=== PATIENT | female | born 1950 | race Two or more races ===

== ENCOUNTER → 2024-03-01 | Outpatient (CLI) | payer MEDICARE | END | disposition home or self-care (01) | LOC: LABPAT 11:12 | PROVIDERS: ATTEND Orthopaedic Surgery | DX: Z01.812 Encounter for preprocedural laboratory examination (principal); Z22.322 Carrier or suspected carrier of Methicillin resistant Staphylococcus aureus; M17.11 Unilateral primary osteoarthritis, right knee | CPT/HCPCS: 87070 ==

== ENCOUNTER 2024-04-03 08:40 | Observation (INO) | payer MEDICARE ==
--- NOTE | 2024-04-02 18:16 | HP ---
HISTORY AND PHYSICAL DATE OF SCHEDULED SURGERY: 04/03/2024. HISTORY OF PRESENT ILLNESS: Emilie Amaya is a 74-year-old patient seen with symptomatic right knee osteoarthritis. She elected to proceed with right total knee arthroplasty. Consent was obtained. Medical clearance was provided by . PAST MEDICAL HISTORY: Hypertension, hyperlipidemia. PAST SURGICAL HISTORY: Noncontributory. DAILY MEDICATIONS: 1. Lisinopril. 2. Simvastatin. 3. Zyrtec. 4. Tylenol. ALLERGIES: Aspirin, codeine, Keflex, morphine, Motrin, sulfa, Toradol, Tylenol 3, Vicodin. SOCIAL HISTORY: She denies tobacco use. PHYSICAL EVALUATION OF THE RIGHT KNEE: Her range of motion is 0 to 120 degrees. Mild effusion. Tenderness to medial joint line. Positive medial Caterina's. Crepitus, medial patellofemoral compartments with range of motion. Pain with patellofemoral compression. Ligaments stable. Hip rotation without pain. Distal neurovascular exam is intact. RADIOGRAPHS: Right knee radiographs revealed severe osteoarthritic changes. IMPRESSION: 1. Right knee osteoarthritis. 2. Hypertension. 3. Hyperlipidemia. PLAN: Right total knee arthroplasty. MMODL / IJN: [id number] /
[~2024-04-03 08:40] MED LIST: LIDOCAINE 1% (10MG/ML) FOR IV START INTRADERMA PRN; MELOXICAM 7.5 MG TAB PO PRN; TRANEXAMIC 1,000 MG/100ML-NACL 1,000 MG in SALINE 1 100ML.BAG IVPB PRN; fentaNYL (PF) 50 MCG/ML 2 ML AMP IV PRN
[2024-04-03] MEDS: ACETAMINOPHEN TAB 500 MG TAB PO PRN (09:27)
[2024-04-03] MEDS: ONDANSETRON 4 MG/2 ML VIAL IVP ONE (09:53)
[2024-04-03] MEDS: LACTATED RINGERS 1,000 ML IV SCH ×2 (09:53→15:01)
[2024-04-03] MEDS: DEXAMETHASONE SOD PHOSPHATE 4 MG/ML 1 ML VIAL IV ONE (09:53)
[2024-04-03] MEDS: IV FLUID CONTINUATION 1,000 ML IV ONE (09:56)
[2024-04-03] MEDS: MIDAZOLAM 2 MG/2 ML VIAL IV ONE (10:01)
--- NOTE | 2024-04-03 10:40 | P.ANPRN ---
Procedure Note - Anesthesia - Nerve Block Performed Right Richardck Single Time Out Performed: Yes Date of Procedure: 04/03/24 Procedure Start Time: 10:00 Procedure Stop Time: 10:05 Location of Patient: PreOp Indication: Acute Post-Operative Pain, Analgesia, Requested by Surgeon Sedation Type: Sedate with meaningful contact maintained Preparation: Sterile Prep Position: Left Lateral Catheter: None Needle Types: Pajunk Needle Gauge: 21 Ultrasound used to visualize needle placement: Yes Ultrasound used to observe medication spread: Yes Injectate: 0.5% Ropivacaine (see comment for volume) (Ropiv 20ml+decadron 4mg) Blood Aspirated: No Pain Paresthesia on Injection Noted: No Resistance on Injection: Normal Image Stored and Saved: Yes Events: Uneventful and Well Tolerated
--- NOTE | 2024-04-03 10:41 | P.ANPRN ---
Procedure Note - Anesthesia - Nerve Block Performed Right Adductor Canal Infusion Time Out Performed: Yes Date of Procedure: 04/03/24 Procedure Start Time: 10:05 Procedure Stop Time: 10:10 Location of Patient: PreOp Indication: Acute Post-Operative Pain, Analgesia, Requested by Surgeon Sedation Type: Sedate with meaningful contact maintained Preparation: Sterile Prep Position: Supine Catheter: Indwelling Needle Gauge: 21 Ultrasound used to visualize needle placement: Yes Ultrasound used to observe medication spread: Yes Injectate: 0.5% Ropivacaine (see comment for volume) (Ropiv 20ml+decadron 4mg) Blood Aspirated: No Pain Paresthesia on Injection Noted: No Resistance on Injection: Normal Image Stored and Saved: Yes Events: Uneventful and Well Tolerated
[2024-04-03] MEDS ORDERED: DEXAMETHASONE SOD PHOSPHATE 4 MG/ML 1 ML VIAL ONE (11:35)
[2024-04-03] MEDS ORDERED: PHENYLEPHRINE 10 MG/ML VIAL ONE (11:35)
[2024-04-03] MEDS ORDERED: fentaNYL (PF) 50 MCG/ML 2 ML AMP ONE (11:35)
[2024-04-03] MEDS ORDERED: ROPIVACAINE 5 MG/ML 30 ML VIAL ONE (11:35)
[2024-04-03] MEDS ORDERED: MIDAZOLAM 2 MG/2 ML VIAL ONE (11:35)
[2024-04-03] MEDS ORDERED: TRANEXAMIC 1,000 MG/100ML-NACL PREMIX BAG ONE (11:35)
[2024-04-03] MEDS ORDERED: KETAMINE HCL IN 0.9 % NACL 50 MG/5 ML SYRINGE ONE (11:35)
[2024-04-03] MEDS ORDERED: PROPOFOL 10 MG/ML 20 ML VIAL IV ONE (11:35)
[2024-04-03] MEDS ORDERED: GLYCOPYRROLATE 0.2 MG/ML 2 ML VIAL ONE (11:35)
[2024-04-03] MEDS ORDERED: HYDROcodone/APAP 5-325MG 1 EACH TAB PO PRN (12:54)
[2024-04-03] MEDS ORDERED: HYDROmorphone 0.5 MG/0.5 ML SYRINGE IVP PRN ×2 (12:54)
[2024-04-03] MEDS ORDERED: HYDROcodone/APAP 7.5-325MG 1 EACH TAB PO PRN (12:54)
[2024-04-03] MEDS ORDERED: NALOXONE 0.4 MG/ML 1 ML VIAL IV PRN (12:54)
--- NOTE | 2024-04-03 12:54 | P.OP ---
Date of Procedure: 04/03/24 Preoperative Diagnosis: Right knee osteoarthritis Postoperative Diagnosis: Right knee osteoarthritis Procedure(s) Performed: Right total knee arthroplasty Implants: 1. DePuy attune size 4 right cruciate retaining cemented femur 2. DePuy attune size 4 fixed-bearing cemented tibial baseplate 3. DePuy attune size 4 cruciate retaining fixed-bearing 8 mm polyethylene tibial insert 4. DePuy attune 35 mm all polyethylene cemented patella Anesthesia: regional (Adductor canal catheter, iPAQ block), spinal Surgeon: Mainor Pollard Director Of Primary #1: Brody Marquez Estimated Blood Loss (ml): 35 Pathology: none sent Condition: stable Disposition: PACU Indications for Procedure: 74-year-old patient seen with symptomatic right knee osteoarthritis. After having treatment options discussed, she elected to proceed with total knee arthroplasty. Operative Findings: See description of procedure Description of Procedure: Patient was taken to the operative suite after having an adductor canal catheter placed by the department of anesthesia. Patient underwent a spinal anesthetic by the department of anesthesia. Patient was given preoperative IV intake antibiotics and TXA. A well-padded tourniquet was placed about the right lower extremity. The lower extremity was then prepped and draped in the normal sterile orthopedic fashion. The extremity was elevated, a tourniquet was insufflated to 300. A standard anterior incision was made sharply through skin. Dissection was taken down through the subcutaneous soft tissues down to the extensor mechanism. A medial arthrotomy was performed, patella was everted and knee was flexed. There was advanced osteoarthritis noted. I introduced my distal intramedullary femoral drill. I then introduced the distal femoral cutting jig. Leland RAMIREZ secured the cutting jig with 2 pins. I held retractors in position while Leland RAMIREZ performed the distal femoral resection through the guide area we now removed her distal femoral cutting guide. We now placed our 4-in-1 femoral cutting block and positioned and it was secured with 2 pins by Leland RAMIREZ while I held the block in position. The distal femoral finishing was now completed. A proximal tibial cutting guide was positioned. I held the guide in the appropriate position with both hands well Leland RAMIREZ inserted stabilizing pins into the guide. Proximal tibial cut was made. We now placed a trial femoral component into position, along with an appropriate size tibial tray and insert. We now took the knee through range of motion and had full extension good flexion and good overall soft tissue balance noted. The patella was everted and stabilized with 2 towel clips held by Leland RAMIREZ while I performed a flush with patellar quad tendon utilizing a fresh sawblade. We templated the patella, appropriate drill holes were made. An appropriate trial patella was positioned, knee was taken through full range of motion with the patella tracking very nicely. The trial patella was removed. Drill holes were made through the femoral component. All trial components were removed after marking off the appropriate rotation of the tibia. Retractors were now positioned along the proximal tibia. An appropriate keel punch was made with the appropriate size tibial guide by myself on Leland RAMIREZ assisted by holding retractors. At this point appropriate size implants were chosen and opened. The joint was irrigated copiously with pulse lavage mechanical irrigation. The wound was irrigated with pulse lavage mechanical irrigation. We mixed antibiotic methylmethacrylate. We placed the knee into flexion. We placed multiple retractors assisted by Leland RAMIREZ to expose the proximal tibia. Once the methyl methacrylate was ready, the tibial component was cemented into place removing any excess methylmethacrylate form by both myself and Leland RAMIREZ. The femoral component was cemented into place removing the removing any excess methylmethacrylate performed by both myself and Leland RAMIREZ. We then inserted the appropriate size polyethylene tibial insert. We made sure that it was locked into position. We took the knee into full extension, and then back in a flexion making sure we had removed any excess methylmethacrylate. The patellar component was then cemented down and secured with clamp. Excess methylmethacrylate removed. We kept the knee in full extension, patellar clamp in position until methylmethacrylate had hardened. Once it had hardened the patellar clamp was removed. The knee was taken through full range of motion. The patella tracked nicely. There was good soft tissue balancing. The tourniquet was now released. Additional hemostasis was achieved via electrocautery. A second gram of TXA was given. The wound again was irrigated with pulse lavage mechanical irrigation. The extensor mechanism was repaired with Ethibond suture. We checked the repair with range of motion and it was stable. The subcutaneous soft tissues were repaired with Vicryl in layers. The skin was approximated with pernio/Dermabond. Sterile dressings were applied followed by loose web roll and Glenroy bandage. The patient was transferred to a bed, and taken to recovery in stable and satisfactory condition. Leland RAMIREZ assisted with this complex procedure.
[2024-04-03] MEDS: LACTATED RINGERS 1,000 ML IV ONE (13:02)
[2024-04-03] MEDS: ROPIVACAINE 1,100 MG, SODIUM CHLORIDE 0.9% 500 ML 330 ML, EMPTY PAIN BALL 1 EACH MISCELLANE PRN (13:33)
--- NOTE | 2024-04-03 14:25 | XR ---
EXAMINATION TYPE: XR knee limited RT DATE OF EXAM: 04/03/2024 2:00 PM CLINICAL INDICATION: Female, 74 years old with history of Evaluation for Postop abnormality and align ment; [facility] COMPARISON: None. TECHNIQUE: XR knee limited RT; examined in Frontal, lateral and oblique projections. FINDINGS: Status post total knee arthroplasty changes with hardware in appropriate alignment and in tact. No evidence of fracture. Subcutaneous lucencies and lucencies within the joint consistent with surgical changes. IMPRESSION: Status post total knee arthroplasty changes with hardware intact and appropriate alignment. No fractu res identified.
[2024-04-03] MEDS: droPERidol 5 MG/2 ML VIAL IVP ONE (14:55)
[2024-04-03] MEDS: traMADol 50 MG TAB PO SCH (14:58)
[2024-04-03] MEDS: HYDROmorphone 0.5 MG/0.5 ML SYRINGE IVP PRN (17:03)
--- NOTE | 2024-04-03 18:09 | P.CONS ---
History of Present Illness - Reason for Consult Consult date: 04/03/24 Medical management Requesting physician: Mainor Pollard - Chief Complaint Right knee surgery - History of Present Illness This is a pleasant 74-year-old patient who follows with Dr. Marga Flores. Chronic stable medical conditions include hypertension, hyperlipidemia, arthritis in the hands specially affecting the thumbs, urinary incontinence, mitral valve prolapse. Patient has undergone right total knee arthroplasty. Short time ago pain was 10 out of 10. Received IV Dilaudid. No nausea vomiting. Denies any cardiac symptoms. Laying in bed. Review of systems: GEN.: None EYES: None HEENT: None NECK: None RESPIRATORY: None CARDIOVASCULAR: None GASTROINTESTINAL: GERD GENITOURINARY: Urine stress incontinence MUSCULOSKELETAL: Joint pains] LYMPHATICS: None HEMATOLOGICAL: None PSYCHIATRY: None NEUROLOGICAL: None Social history: Lives alone. No smoking alcohol. Physical examination: VITAL SIGNS: Afebrile, 59, 16, 140/93, 97% room air GENERAL: BMI 25.3, reclining bed awake not in distress. EYES: Pupils equal. Conjunctiva unique l. HEENT: External appearance of nose and ears normal, oral cavity grossly normal. NECK: JVD not raised; masses not palpable. HEART: First and second heart sounds are normal; no edema. LUNGS: Respiratory rate normal; clear to auscultation. ABDOMEN: Soft, nontender, liver spleen not palpable, no masses palpable. PSYCH: Alert and oriented x3; mood and affect unique l. MUSCULOSKELETAL:No Clubbing/cyanosis;muscles-grossly intact. OA especially in the hands. Dressing with Glenroy wrap on the right knee. NEUROLOGICAL: Cranial nerves grossly intact; no facial asymmetry, power and sensation grossly intact. LYMPHATICS: No lymph nodes palpable in the axilla and neck Assessment plan: -Right total knee arthroplasty Aspirin for DVT prophylaxis. Cefazolin for infection prophylaxis. Pain management -Essential hypertension Zestril 20 mg a day -Hyperlipidemia Zocor 40 mg nightly -Primary osteoarthritis multiple joints specially hands Pain medication as needed -Mitral valve prolapse, asymptomatic -Chronic urinary stress incontinence -Full code Care was discussed with the patient. Questions answered. Thank you Dr. Manjarrez Past Medical History Past Medical History: Hyperlipidemia, Hypertension History of Any Multi-Drug Resistant Organisms: None Reported Past Surgical History: Cholecystectomy, Orthopedic Surgery Additional Past Surgical History / Comment(s): R knee, bilateral great toe joints replaced Past Anesthesia/Blood Transfusion Reactions: No Reported Reaction Past Psychological History: No Psychological Hx Reported Smoking Status: Never smoker Past Drug Use History: None Reported Medications and Allergies Home Medications Medication Instructions Recorded Confirmed Type Acetaminophen [Tylenol Extra 2 tab PO Q8H PRN 04/02/24 04/03/24 History Strength] Simvastatin [Zocor] 40 mg PO HS 04/02/24 04/03/24 History lisinopriL [Prinivil] 20 mg PO DAILY 04/02/24 04/03/24 History Allergies Allergy/AdvReac Type Severity Reaction Status Date / Time acetaminophen [From Vicodin] Allergy Rash/Hives Verified 04/03/24 09:17 aspirin Allergy Rash/Hives Verified 04/03/24 09:17 cephalexin [From Keflex] Allergy Rash/Hives Verified 04/03/24 09:17 codeine Allergy Dyspnea Verified 04/03/24 09:17 hydrocodone [From Vicodin] Allergy Rash/Hives Verified 04/03/24 09:17 ketorolac [From Toradol] Allergy Rash/Hives Verified 04/03/24 09:17 Sulfa (Sulfonamide Allergy Rash/Hives Verified 04/03/24 09:17 Antibiotics) NSAIDS (Non-Steroidal AdvReac Rash/Hives Verified 04/03/24 09:17 Anti-Inflamma Physical Exam Vitals: Vital Signs Temp Pulse Resp BP Pulse Ox 04/03/24 16:59 59 L 140/93 97 04/03/24 16:41 84 181/85 94 L 04/03/24 16:27 84 163/107 99 04/03/24 16:11 66 162/95 94 L 04/03/24 15:56 59 L 158/89 95 04/03/24 15:41 64 150/84 04/03/24 15:26 65 156/84 98 04/03/24 15:11 63 156/89 96 04/03/24 14:56 62 158/91 93 L 04/03/24 14:41 68 133/83 96 04/03/24 14:20 59 L 125/77 97 04/03/24 14:05 61 125/77 96 04/03/24 13:50 65 16 113/72 96 04/03/24 13:35 65 110/70 97 04/03/24 13:22 97.6 F 70 16 108/64 95 04/03/24 10:16 66 16 125/72 100 04/03/24 09:32 97.0 F L 73 18 177/93 97 Intake and Output 04/03/24 04/03/24 04/03/24 06:59 14:59 22:59 Intake Total 1150 Output Total 35 Balance 1115 Intake: IV 1150 Output: Estimated Blood Loss 35 Other: Weight 64.9 kg
[2024-04-03] MEDS: ATORVASTATIN 20 MG TAB PO SCH (20:59)
[2024-04-03] MEDS: SENNOSIDES-DOCUSATE SODIUM 1 EACH TAB PO SCH (21:00)
[2024-04-03] MEDS: ASPIRIN 325 MG TAB PO SCH (21:00)
[2024-04-04] MEDS: MULTIVITAMINS, THERA 1 EACH TAB PO SCH (08:45)
[2024-04-04] MEDS: lisinopriL 20 MG TAB PO SCH (08:45)
[2024-04-04] MEDS: ONDANSETRON 4 MG/2 ML VIAL IVP PRN (09:18)
--- NOTE | 2024-04-04 09:48 | P.PN ---
Progress Note - Text Progress Note Date: 04/04/24 Anesthesiology Postop day 1 status post total knee arthroplasty with adductor canal catheter. Patient doing well. VAS 4 out of 10. Gross strength intact in lower extremity. Afebrile. Denies alterations in sensorium. Catheter site intact. Heart regular rate Lungs nonlabored Abdomen nondistended Assessment: Postop day 1 status post total knee arthroplasty with adductor canal catheter Plan: 1.All questions answered. Maintain catheter 2 more days with patient removal at home. Instructions to be given at discharge. 2.This note was dictated using Cuturia software. Please be advised there is a potential for misspellings or errors in mineralogy teacher.
[2024-04-04] MEDS: ENOXAPARIN 30 MG/0.3 ML SYRINGE SQ SCH (10:20)
[2024-04-04 10:59] LABS: Basophils # (A) 0.02 X 10*3/uL (0.00-0.10); Basophils % (A) 0.1 %; Eosinophils # (A) 0 X 10*3/uL (0.04-0.35); Eosinophils % (A) 0 %; HCT 38.9 % (37.2-46.3); HGB 13.3 g/dL (12.0-15.0); Lymphocytes # (A) 1.09 X 10*3/uL (0.90-5.00); Lymphocytes % (A) 6.4 %; MCH 31.4 pg (27.0-32.0); MCHC 34.2 g/dL (32.0-37.0); MCV 91.7 FL (80.0-97.0); Mean Platelet Volume 9.6 FL (9.5-12.2); Monocytes # (A) 1.08 X 10*3/uL (0.20-1.00); Monocytes % (A) 6.4 %; NRBC Per 100 WBC 0 X 10*3/uL (0.00-0.01); Neutrophils # (A) 14.64 X 10*3/uL (1.80-7.70); Neutrophils % (A) 86.4 %; Platelet Count 313 X 10*3/uL (140-440); RBC 4.24 X 10*6/uL (4.10-5.20); RDW 12.4 % (11.5-14.5); WBC 16.95 X 10*3/uL (4.50-10.00)
--- NOTE | 2024-04-04 12:02 | P.PN ---
Subjective Progress Note Date: 04/04/24 Principal diagnosis: Status post right total knee arthroplasty Patient evaluated today at bedside, she is resting comfortably in her hospital bed. Patient has been dealing with a lot of nausea this morning, she did receive Zofran which did help. She was unable to do the stairs of physical therapy due to the nausea. She denies any headaches, lightheadedness or chest pain at this time. Objective - Vital Signs Vital signs: Vital Signs Temp 97.7 F 04/04/24 08:00 Pulse 62 04/04/24 08:00 Resp 18 04/04/24 11:13 BP 126/72 04/04/24 08:00 Pulse Ox 93 L 04/04/24 08:00 FiO2 Intake & Output 04/03/24 04/04/24 04/04/24 18:59 06:59 18:59 Intake Total 1150 Output Total 35 Balance 1115 Weight 64.9 kg Intake: IV 1150 Output: Estimated Blood Loss 35 Other: # Voids 1 - Exam Right lower extremity: Incision is clean, dry, and intact. The foam dressing is in good condition. There is minimal soft tissue swelling and ecchymosis surrounding the medial and lateral aspects of the incision. Calf is soft, no tenderness with palpation. Plantar flexion, dorsiflexion, EHL, FHL are intact. Sensory exam to light touch throughout the extremity is intact, dorsal pedis pulses 2+. - Labs CBC & Chem 7: 04/04/24 07:19 Labs: Abnormal Lab Results - Last 24 Hours (Table) 04/04/24 Range/Units 07:19 WBC 16.95 H (4.50-10.00) X 10*3/uL Immature Gran # 0.12 H (0.00-0.04) X 10*3/uL Neutrophils # 14.64 H (1.80-7.70) X 10*3/uL Monocytes # 1.08 H (0.20-1.00) X 10*3/uL Eosinophils # 0 L (0.04-0.35) X 10*3/uL Assessment and Plan Assessment: Postoperative day #1 status post right total knee arthroplasty Nausea Other medical comorbidities Plan: Pain control, continue with tramadol and Tylenol as needed DVT prophylaxis, continue Lovenox, will likely use Lovenox at discharge Encourage incentive spirometer Wound care instructions were discussed, this to include showering along with icing and elevating Medical recommendations appreciated Discharge planning: Would like to keep patient in hospital for additional night to work on nausea and have her work with therapy, plan for discharge home with home health care on 04/05/2024 Time with Patient: Less than 30
--- NOTE | 2024-04-04 16:26 | P.PN ---
Progress Note - Text Progress Note Date: 04/04/24 - Chief Complaint Right knee surgery - History of Present Illness This is a pleasant 74-year-old patient who follows with Dr. Marga Flores. Chronic stable medical conditions include hypertension, hyperlipidemia, arthritis in the hands specially affecting the thumbs, urinary incontinence, mitral valve prolapse. Patient has undergone right total knee arthroplasty. Short time ago pain was 10 out of 10. Received IV Dilaudid. No nausea vomiting. Denies any cardiac symptoms. Laying in bed. April 04: Patient had nausea overnight. Vomited all of breakfast this morning. No abdominal pain. Tired in bed. Active Medications Acetaminophen (Acetaminophen Tab 500 Mg Tab) 1,000 mg PO Q6HR PRN PRN Reason: Fever and/ or Pain Stop: 05/03/24 13:23 Aspirin (Aspirin 325 Mg Tab) 325 mg PO BID [facility] Stop: 05/03/24 20:59 Last Admin: 04/04/24 10:19 Dose: Not Given Atorvastatin Calcium (Atorvastatin 20 Mg Tab) 20 mg PO HS [facility] Last Admin: 04/03/24 20:59 Dose: 20 mg Ropivacaine 1,100 mg/ Sodium Chloride 330 ml/ Bandage/Support Products 1 each 0 mg MISCELLANE Q2H PRN PRN Reason: Breakthrough Pain Stop: 05/03/24 10:41 Last Admin: 04/03/24 13:33 Dose: 8 ml Enoxaparin Sodium (Enoxaparin 30 Mg/0.3 Ml Syringe) 30 mg SQ DAILY [facility] Last Admin: 04/04/24 10:20 Dose: 30 mg Hydromorphone HCl (Hydromorphone 0.5 Mg/0.5 Ml Syringe) 0.25 mg IVP Q3HR PRN PRN Reason: Pain Scale 4 to 6 Stop: 05/03/24 12:53 Hydromorphone HCl (Hydromorphone 0.5 Mg/0.5 Ml Syringe) 0.5 mg IVP Q3HR PRN PRN Reason: Pain Scale 7 to 10 Stop: 05/03/24 12:53 Last Admin: 04/03/24 17:03 Dose: 0.5 mg Hydromorphone HCl (Hydromorphone 0.5 Mg/0.5 Ml Syringe) 0.125 mg IVP Q3HR PRN PRN Reason: Pain Scale 1 to 3 Stop: 05/03/24 12:53 Lactated Ringer's (Lactated Ringers) 1,000 mls @ 20 mls/hr IV .Q24H [facility] Stop: 05/03/24 05:30 Last Admin: 04/04/24 05:49 Dose: Not Given Lactated Ringer's (Lactated Ringers) 1,000 mls @ 80 mls/hr IV .[id number] [facility] Stop: 05/03/24 12:59 Last Admin: 04/04/24 12:36 Dose: Not Given Lidocaine HCl (Lidocaine 1% (10mg/Ml) For Iv Start) 0.1 ml INTRADERMA PER PROTOCOL PRN PRN Reason: IV Start Stop: 05/03/24 05:30 Lisinopril (Lisinopril 20 Mg Tab) 20 mg PO DAILY [facility] Last Admin: 04/04/24 08:45 Dose: 20 mg Multivitamins (Multivitamins, Thera 1 Each Tab) 1 each PO DAILY@1200 [facility] Stop: 05/04/24 11:59 Last Admin: 04/04/24 08:45 Dose: 1 each Naloxone HCl (Naloxone 0.4 Mg/Ml 1 Ml Vial) 0.2 mg IV Q2M PRN PRN Reason: Opioid Reversal Stop: 05/03/24 12:53 Ondansetron HCl (Ondansetron 4 Mg/2 Ml Vial) 4 mg IVP Q8HR PRN PRN Reason: Nausea And Vomiting Stop: 05/03/24 12:53 Last Admin: 04/04/24 09:18 Dose: 4 mg Senna/Docusate Sodium (Sennosides-Docusate Sodium 1 Each Tab) 2 each PO HS [facility] Stop: 05/03/24 20:59 Last Admin: 04/03/24 21:00 Dose: 2 each Tramadol HCl (Tramadol 50 Mg Tab) 50 mg PO QID [facility] Stop: 05/03/24 17:59 Last Admin: 04/04/24 12:39 Dose: 50 mg Social history: Lives alone. No smoking alcohol. Physical examination: VITAL SIGNS: 97.8, 69, 18, 119/68, 91% room air GENERAL: In bed, not in distress. EYES: Pupils equal. Conjunctiva unique l. HEENT: External appearance of nose and ears normal, oral cavity grossly normal. NECK: JVD not raised; masses not palpable. HEART: First and second heart sounds are normal; no edema. LUNGS: Respiratory rate normal; clear to auscultation. ABDOMEN: Soft, nontender, liver spleen not palpable, no masses palpable. PSYCH: Alert and oriented x3; mood and affect unique l. MUSCULOSKELETAL:No Clubbing/cyanosis;muscles-grossly intact. OA especially in the hands. Dressing with Glenroy wrap on the right knee. Assessment plan: -Right total knee arthroplasty Aspirin for DVT prophylaxis. Cefazolin for infection prophylaxis. Pain management -Nausea vomiting could be from aspirin. Add Pepcid -Essential hypertension Zestril 20 mg a day -Hyperlipidemia Zocor 40 mg nightly -Primary osteoarthritis multiple joints specially hands Pain medication as needed -Mitral valve prolapse, asymptomatic -Chronic urinary stress incontinence -Full code Discussed with patient Thank you Dr. Manjarrez Past Medical History Past Medical History: Hyperlipidemia, Hypertension History of Any Multi-Drug Resistant Organisms: None Reported Past Surgical History: Cholecystectomy, Orthopedic Surgery Additional Past Surgical History / Comment(s): R knee, bilateral great toe joints replaced Past Anesthesia/Blood Transfusion Reactions: No Reported Reaction Past Psychological History: No Psychological Hx Reported Smoking Status: Never smoker Past Drug Use History: None Reported
[2024-04-04] MEDS: FAMOTIDINE 20 MG TAB PO SCH (17:41)
[2024-04-05 05:16] LABS: African American GFR (CKD) 90 (>60 ml/min/1.73 sqM); Anion Gap 2 mmol/L; Blood Urea Nitrogen 20 mg/dL (7-17); Calcium 8.5 mg/dL (8.4-10.2); Carbon Dioxide 27 mmol/L (22-30); Chloride 103 mmol/L (98-107); Glucose 135 mg/dL (74-99); Non-African American GFR(CKD) 78 (>60 ml/min/1.73 sqM); Sodium 132 mmol/L (137-145)
[2024-04-05 07:25] VITALS: BP 166/93; PULSE 69; RESP 18; TEMP 97.7
--- NOTE | 2024-04-05 08:19 | P.PN ---
Subjective Progress Note Date: 04/05/24 Principal diagnosis: Status post right total knee arthroplasty Patient evaluated today at bedside, she is resting comfortably in her hospital bed. Patient states that the nausea is much improved. She does note some discomfort in the knee. She has been utilizing the Tylenol and tramadol alternating. She denies any headaches, lightheadedness or chest pain at this time. Objective - Vital Signs Vital signs: Vital Signs Temp 97.7 F 04/05/24 07:24 Pulse 69 04/05/24 07:24 Resp 18 04/05/24 07:24 BP 166/93 04/05/24 07:24 Pulse Ox 93 L 04/05/24 07:24 FiO2 Intake & Output 04/04/24 04/05/24 04/05/24 18:59 06:59 18:59 Intake Total 500 Balance 500 Intake: Oral 500 Other: Voiding Method Toilet # Voids 3 - Exam Right lower extremity: Incision is clean, dry, and intact. The foam dressing is in good condition. There is minimal soft tissue swelling and ecchymosis surrounding the medial and lateral aspects of the incision. Calf is soft, no tenderness with palpation. Plantar flexion, dorsiflexion, EHL, FHL are intact. Sensory exam to light touch throughout the extremity is intact, dorsal pedis pulses 2+. - Labs CBC & Chem 7: 04/04/24 07:19 04/05/24 04:41 Labs: Abnormal Lab Results - Last 24 Hours (Table) 04/04/24 04/05/24 Range/Units 07:19 04:41 WBC 16.95 H (4.50-10.00) X 10*3/uL Immature Gran # 0.12 H (0.00-0.04) X 10*3/uL Neutrophils # 14.64 H (1.80-7.70) X 10*3/uL Monocytes # 1.08 H (0.20-1.00) X 10*3/uL Eosinophils # 0 L (0.04-0.35) X 10*3/uL Sodium 132 L (137-145) mmol/L BUN 20 H (7-17) mg/dL Glucose 135 H (74-99) mg/dL Assessment and Plan Assessment: Postoperative day #2 status post right total knee arthroplasty Nausea, improved Other medical comorbidities Plan: Pain control, will utilize tramadol and Tylenol at discharge DVT prophylaxis, Lovenox for 12 days Encourage incentive spirometer Home PT/OT Wound care instructions were discussed, this to include showering along with icing and elevating Medical recommendations appreciated Discharge planning: Stable for discharge home today Time with Patient: Less than 30
--- NOTE | 2024-04-05 08:23 | P.DS ---
Providers Date of admission: 04/03/2024 Expected date of discharge: 04/05/24 Attending physician: Mainor Pollard Consults: 04/03/24 12:54 Consult Physician Routine Consulting Provider: Mohit Aranda Consult Reason/Comments: Medical management Do you want consulting provider notified?: Yes Primary care physician: Marga Flores MD Hospital Course: Date of admission: 04/03/2024 Date of discharge: 04/05/2024 Admission diagnosis: Status post left total knee arthroplasty Discharge diagnosis: Same Attending physician: Dr. Pollard Surgical procedures: Left total knee arthroplasty Brief history: Patient is a 74-year-old female with a history of progressive primary left knee osteoarthritis. At this point patient has failed conservative treatment measures and has opted to proceed with a elective left total knee arthroplasty. Hospital course: Details of patient's surgery can be found in operative report. Patient tolerated the procedure well and was subsequently transported to orthopedic floor. Patient's orthopeidc and medical care was provided daily. Patient had daily laboratory tests performed for evaluation of overall blood counts. Patient had daily physical therapy to include strengthening range of motion as well as education with walker ambulation. Patient was treated with Lovenox for their postoperative DVT prophylaxis during their inpatient stay. Patient was noted to have a relatively uneventful postoperative course. Patient reported satisfactory pain control with oral pain medications by postoperative day 1. Patient showed satisfactory progress with physical therapy. Patient moved steadily through the program and had no difficulty meeting the goals by postoperative day 2. Given patient's otherwise satisfactory course and having m et physical therapy goals, plan is to discharge patient home on postoperative day 2. Discharge condition/disposition: Patient will be discharged home in stable condition. Discharge medications: Instructions are given on resumption of patient's normal daily medications per primary care recommendation, in addition patient will be prescribed Tylenol 650 mg, tramadol 50 mg, Lovenox 30 mg, senna S. Discharge instructions: 1. Wound care and infection precautions, keep incision dry and covered while showering, no lotions, creams, moisturizers. No soaking, tubs, pools, hottubs. Do not scrub over the incision. 2. Weight-bear as tolerated with walker / cane until follow-up. 3. Ice and elevate when necessary. Do not exceed 20 minutes per hour with ice pack. 4. Utilize compression sleeve until seen at first follow up appointment. 5. Visiting nursing care. 6. Home physical therapy including home CPM. 7. Pain meds and anticoagulants per prescription. 8. Pain medication has potential to cause constipation. Increase oral fluid and fiber intake. Contact primary care provider if you have not had a bowel movement within 48 hours after discharge 9. No anti-inflammatory medication until discussed at first post operative visit, this including Motrin, Aleve, Mobic, Diclofenac. 10. Follow up in office at 2 weeks postop with Leland Marquez PA-C/Rao Chávez 11. Follow up with your primary care doctor 7-10 days after discharge. 12. Contact [facility] with any questions, . Procedures: Left total knee arthroplasty Patient Condition at Discharge: Good Plan - Discharge Summary Discharge Rx Participant: Yes New Discharge Prescriptions: New Enoxaparin [Lovenox] 30 mg SQ DAILY #12 each traMADol HCL 50 mg PO Q6H PRN 7 Days #28 tab PRN Reason: Pain Acetaminophen Tab [Tylenol] 650 mg PO Q6H PRN #40 tab PRN Reason: Pain Sennosides/Docusate Sodium [Senna-S 8.6-50 mg Tablet] 2 each PO DAILY PRN #30 tablet PRN Reason: Constipation No Action Simvastatin [Zocor] 40 mg PO HS Acetaminophen [Tylenol Extra Strength] 2 tab PO Q8H PRN PRN Reason: Pain lisinopriL [Prinivil] 20 mg PO DAILY Discharge Medication List Acetaminophen [Tylenol Extra Strength] 2 tab PO Q8H PRN 04/02/24 [History] Simvastatin [Zocor] 40 mg PO HS 04/02/24 [History] lisinopriL [Prinivil] 20 mg PO DAILY 04/02/24 [History] Acetaminophen Tab [Tylenol] 650 mg PO Q6H PRN #40 tab 04/05/24 [Rx] Enoxaparin [Lovenox] 30 mg SQ DAILY #12 each 04/05/24 [Rx] Sennosides/Docusate Sodium [Senna-S 8.6-50 mg Tablet] 2 each PO DAILY PRN #30 tablet 04/05/24 [Rx] traMADol HCL 50 mg PO Q6H PRN 7 Days #28 tab 04/05/24 [Rx] Follow up Appointment(s)/Referral(s): Brody Marquez, LIZANDRO [PHYSICIAN [employer]] - 2 Weeks [facility] Visiting Nurse, [NON-STAFF] - 1 Week Activity/Diet/Wound Care/Special Instructions: Orthopedic Discharge Instructions: 1. Wound care and infection precautions, keep incision dry and covered while showering, no lotions, creams, moisturizers. No soaking, pools, hot tubs. Do not scrub over incision. 2. Weight-bear as tolerated with walker / cane until follow-up. 3. Ice and elevate when necessary. Do not exceed 20 minutes per hour with ice pack. 4. Utilize compression sleeve until seen at first follow up appointment. 5. Pain meds and anticoagulants per prescription. 6. Pain medication has potential to cause constipation. Increase oral fluid and fiber intake. Contact primary care provider if you have not had a bowel movement within 48 hours after discharge. 7. No anti-inflammatory medication until discussed at first post operative visit, this including Motrin, Aleve, Mobic, Diclofenac. 8. Follow up in office at 2 weeks postop with Leland Marquez PA-C/Rao Holloway PA-C 9. Follow up with your primary care doctor 7-10 days after discharge. 10. Contact [facility] with any questions, . Wound care instructions: 1. Okay to remove surgical dressing as of 04/10/2024 2. Okay to shower directly over the incision after removal of dressing Discharge Disposition: HOME WITH HOME HEALTH SERVICES
[2024-04-05] MEDS: ACETAMINOPHEN TAB 500 MG TAB PO PRN (10:59)
--- NOTE | 2024-04-05 16:29 | P.PN ---
Progress Note - Text Progress Note Date: 04/05/24 - Chief Complaint Right knee surgery - History of Present Illness This is a pleasant 74-year-old patient who follows with Dr. Marga Flores. Chronic stable medical conditions include hypertension, hyperlipidemia, arthritis in the hands specially affecting the thumbs, urinary incontinence, mitral valve prolapse. Patient has undergone right total knee arthroplasty. Short time ago pain was 10 out of 10. Received IV Dilaudid. No nausea vomiting. Denies any cardiac symptoms. Laying in bed. April 04: Patient had nausea overnight. Vomited all of breakfast this morning. No abdominal pain. Tired in bed. April 05: Nausea better. Did tolerate some breakfast. Operative site pain present. Per Ortho aspirin changed over to subcu Lovenox. Discussed with patient. Questions answered. Social history: Lives alone. No smoking alcohol. Physical examination: VITAL SIGNS: 97.7, 69, 18, 166 x 93, 93% room air GENERAL: In bed, comfortable EYES: Pupils equal. Conjunctiva unique l. HEENT: External appearance of nose and ears normal, oral cavity grossly normal. NECK: JVD not raised; masses not palpable. HEART: First and second heart sounds are normal; no edema. LUNGS: Respiratory rate normal; clear to auscultation. ABDOMEN: Soft, nontender, liver spleen not palpable, no masses palpable. PSYCH: Alert and oriented x3; mood and affect unique l. MUSCULOSKELETAL:No Clubbing/cyanosis;muscles-grossly intact. OA especially in the hands. Dressing with [place] wrap on the right knee. Assessment plan: -Right total knee arthroplasty Subcu Lovenox for DVT prophylaxis. Cefazolin for infection prophylaxis. Pain management -Nausea vomiting could be from aspirin and pain medications. Add Pepcid -Essential hypertension Zestril 20 mg a day -Hyperlipidemia Zocor 40 mg nightly -Primary osteoarthritis multiple joints specially hands Pain medication as needed -Mitral valve prolapse, asymptomatic -Chronic urinary stress incontinence -Full code Discussed with patient. Follow-up with PCP Thank you Dr. Manjarrez Past Medical History Past Medical History: Hyperlipidemia, Hypertension History of Any Multi-Drug Resistant Organisms: None Reported Past Surgical History: Cholecystectomy, Orthopedic Surgery Additional Past Surgical History / Comment(s): R knee, bilateral great toe joints replaced Past Anesthesia/Blood Transfusion Reactions: No Reported Reaction Past Psychological History: No Psychological Hx Reported Smoking Status: Never smoker Past Drug Use History: None Reported
== END 2024-04-05 13:44 | disposition home health service (06) ==
LOC: OR 08:40 → 4SSUR 13:16 → OR 04-04 12:02
PROVIDERS: ADMIT Orthopaedic Surgery; ATTEND Orthopaedic Surgery
DX: M17.11 Unilateral primary osteoarthritis, right knee (principal); I10 Essential (primary) hypertension; E78.5 Hyperlipidemia, unspecified; J44.9 Chronic obstructive pulmonary disease, unspecified; K21.9 Gastro-esophageal reflux disease without esophagitis; I34.1 Nonrheumatic mitral (valve) prolapse; M19.042 Primary osteoarthritis, left hand; M19.041 Primary osteoarthritis, right hand; N39.3 Stress incontinence (female) (male); Z79.899 Other long term (current) drug therapy; Z88.6 Allergy status to analgesic agent; Z88.1 Allergy status to other antibiotic agents; Z88.5 Allergy status to narcotic agent; Z88.2 Allergy status to sulfonamides; Z98.818 Other dental procedure status; Z98.890 Other specified postprocedural states
CPT/HCPCS: 64448; 64999; 80048; 85025; 96372

== ENCOUNTER 2024-07-22 07:40 | Day surgery (SDC) | payer MEDICARE ==
[2024-07-18 15:27] VITALS: BMI 24.4
--- NOTE | 2024-07-21 21:23 | HP ---
HISTORY AND PHYSICAL DATE OF SURGERY: 07/22/2024. HISTORY OF PRESENT ILLNESS: Emilie Amaya is a 74-year-old patient seen with persistent right knee stiffness with history of previous total knee arthroplasty. We discussed options. She elected to proceed with manipulation under anesthesia, right knee. Consent was obtained. PAST MEDICAL HISTORY: Hypertension, hyperlipidemia. PAST SURGICAL HISTORY: Total knee arthroplasty. DAILY MEDICATIONS: 1. Lisinopril. 2. Simvastatin. 3. Tylenol. ALLERGIES: None known. SOCIAL HISTORY: She denies tobacco use. PHYSICAL EVALUATION OF THE RIGHT KNEE: She has a well-healed incision. Range of motion is -5 to 80 degrees. Ligaments stable. Hip rotation without pain. Distal neurovascular exam is intact. IMAGING STUDIES: Right knee radiographs revealed stable total knee arthroplasty. IMPRESSION: 1. Right knee adhesions. 2. History of right total knee arthroplasty. 3. Hypertension. 4. Hyperlipidemia. PLAN: Manipulation under anesthesia, right knee. MMODL / IJN: [id number] /
[2024-07-22] MEDS ORDERED: MIDAZOLAM 2 MG/2 ML VIAL IV PRN (08:09)
[2024-07-22] MEDS: IV FLUID CONTINUATION 1,000 ML IV ONE (08:25)
[2024-07-22] MEDS: LACTATED RINGERS 1,000 ML IV SCH (08:27)
[2024-07-22] MEDS ORDERED: PROPOFOL 10 MG/ML 20 ML VIAL IV ONE (09:31)
--- NOTE | 2024-07-22 09:45 | P.OP ---
Date of Procedure: 07/22/24 Preoperative Diagnosis: Right knee adhesions Postoperative Diagnosis: Right knee adhesions Procedure(s) Performed: Manipulation under anesthesia right knee Anesthesia: MAC Surgeon: Mainor Pollard Estimated Blood Loss (ml): 0 Pathology: none sent Condition: stable Disposition: PACU Indications for Procedure: 74-year-old patient seen with her persistent right knee adhesions with history of previous total knee arthroplasty. After treatment options were discussed, she elected to proceed with manipulation under anesthesia right knee. Consent was obtained. Operative Findings: See description of procedure Description of Procedure: Patient was taken to a monitored anesthesia area. She received IV sedation by the department of anesthesia. Once sufficient anesthesia was noted I performed a manipulation of the right knee achieving near full range of motion with audible tearing of the adhesions. The patient was now awakened having tolerated the procedure well.
[2024-07-22 09:54] VITALS: TEMP 97.6
[2024-07-22] MEDS: fentaNYL (PF) 50 MCG/ML 2 ML AMP IV PRN (09:57)
[2024-07-22] MEDS: HYDROmorphone 0.5 MG/0.5 ML SYRINGE IVP PRN (10:20)
[2024-07-22 11:24] VITALS: RESP 18
[2024-07-22] MEDS: ONDANSETRON 4 MG/2 ML VIAL IVP ONE (11:31)
[2024-07-22 11:37] VITALS: BP 156/79; PULSE 81
== END 2024-07-22 12:12 | disposition home or self-care (01) ==
LOC: OR 07:40
PROVIDERS: ATTEND Orthopaedic Surgery
DX: M25.661 Stiffness of right knee, not elsewhere classified (principal); M23.8X1 Other internal derangements of right knee; E78.5 Hyperlipidemia, unspecified; I10 Essential (primary) hypertension; K21.9 Gastro-esophageal reflux disease without esophagitis; I34.1 Nonrheumatic mitral (valve) prolapse; F17.200 Nicotine dependence, unspecified, uncomplicated; Z96.651 Presence of right artificial knee joint; Z79.899 Other long term (current) drug therapy; Z88.5 Allergy status to narcotic agent; Z88.1 Allergy status to other antibiotic agents; Z88.6 Allergy status to analgesic agent; Z88.2 Allergy status to sulfonamides; Z88.8 Allergy status to other drugs, medicaments and biological substances
CPT/HCPCS: 27570; J2405; J3010; J2704; J1171

== ENCOUNTER → 2024-10-18 | Outpatient (CLI) | payer MEDICARE ==
[2024-10-18 14:50] LABS: Basophils # (A) 0.02 X 10*3/uL (0.00-0.10); Basophils % (A) 0.4 %; Eosinophils # (A) 0.26 X 10*3/uL (0.04-0.35); Eosinophils % (A) 4.9 %; HCT 45.6 % (37.2-46.3); HGB 15.4 g/dL (12.0-15.0); Lymphocytes # (A) 1.19 X 10*3/uL (0.90-5.00); Lymphocytes % (A) 22.6 %; MCH 31.6 pg (27.0-32.0); MCHC 33.8 g/dL (32.0-37.0); MCV 93.6 FL (80.0-97.0); Mean Platelet Volume 9.6 FL (9.5-12.2); Monocytes # (A) 0.49 X 10*3/uL (0.20-1.00); Monocytes % (A) 9.3 %; NRBC Per 100 WBC 0 X 10*3/uL (0.00-0.01); Neutrophils # (A) 3.29 X 10*3/uL (1.80-7.70); Neutrophils % (A) 62.6 %; Platelet Count 340 X 10*3/uL (140-440); RBC 4.87 X 10*6/uL (4.10-5.20); RDW 13.5 % (11.5-14.5); WBC 5.26 X 10*3/uL (4.50-10.00)
[2024-10-18 16:23] LABS: Anion Gap 12.3 mmol/L (4.00-12.00); Carbon Dioxide 25.7 mmol/L (21.6-31.8); Potassium 4.8 mmol/L (3.5-5.5)
== END | disposition home or self-care (01) ==
LOC: LABPAT 10:41
PROVIDERS: ATTEND Orthopaedic Surgery
DX: Z01.812 Encounter for preprocedural laboratory examination (principal); M24.661 Ankylosis, right knee
CPT/HCPCS: 80051; 85025

== ENCOUNTER 2024-11-06 07:50 | Day surgery (SDC) | payer MEDICARE ==
--- NOTE | 2024-11-05 20:55 | HP ---
HISTORY AND PHYSICAL DATE OF SURGERY: 11/06/2024. HISTORY OF PRESENT ILLNESS: Emilie Amaya is a 74-year-old patient seen with progressive right knee pain. We discussed options regarding treatment. She elected to proceed with right knee arthroscopy. Consent was obtained. PAST MEDICAL HISTORY: Hypertension, hyperlipidemia. PAST SURGICAL HISTORY: Noncontributory. DAILY MEDICATIONS: 1. Lisinopril. 2. Simvastatin. 3. Zyrtec. ALLERGIES: Aspirin, codeine, Daypro, Keflex, morphine, Motrin, sulfa allergy. SOCIAL HISTORY: She denies tobacco use. PHYSICAL EVALUATION OF THE RIGHT KNEE: Her range of motion is 0 to 80 degrees. Tenderness along the medial joint line. Ligaments are stable. Incision anteriorly well healed. Distal neurovascular exam is intact. IMAGING STUDIES: Radiographs of the right knee revealed a stable appearing total knee arthroplasty. IMPRESSION: 1. Right knee persistent adhesions/adhesive capsulitis. 2. History of total knee arthroplasty. 3. Hypertension. PLAN: Right knee arthroscopy with lysis of adhesions and debridement. MMODL / IJN: [id number] /
[~2024-11-06 07:50] MED LIST changes: -LIDOCAINE 1% (10MG/ML) FOR IV START INTRADERMA PRN; -MELOXICAM 7.5 MG TAB PO PRN; +MIDAZOLAM 2 MG/2 ML VIAL IV PRN; -TRANEXAMIC 1,000 MG/100ML-NACL 1,000 MG in SALINE 1 100ML.BAG IVPB PRN; -fentaNYL (PF) 50 MCG/ML 2 ML AMP IV PRN
[2024-11-06] MEDS: IV FLUID CONTINUATION 1,000 ML IV ONE (08:16)
[2024-11-06] MEDS: DEXAMETHASONE SOD PHOSPHATE 4 MG/ML 1 ML VIAL IV ONE (08:45)
[2024-11-06] MEDS: ONDANSETRON 4 MG/2 ML VIAL IVP ONE (08:45)
[2024-11-06] MEDS: LACTATED RINGERS 1,000 ML IV SCH (08:45)
[2024-11-06] MEDS ORDERED: LIDOCAINE 1% INJ 10MG/ML (20 ML MDV) ONE (09:40)
[2024-11-06] MEDS ORDERED: PHENYLEPHRINE 10 MG/ML VIAL ONE (09:40)
[2024-11-06] MEDS ORDERED: fentaNYL (PF) 50 MCG/ML 2 ML AMP ONE (09:40)
[2024-11-06] MEDS ORDERED: MIDAZOLAM 2 MG/2 ML VIAL ONE (09:40)
[2024-11-06] MEDS ORDERED: NEOSTIGMINE 1 MG/ML 10 ML VIAL ONE (09:40)
[2024-11-06] MEDS ORDERED: PROPOFOL 10 MG/ML 20 ML VIAL IV ONE (09:40)
[2024-11-06] MEDS ORDERED: GLYCOPYRROLATE 0.2 MG/ML 2 ML VIAL ONE (09:40)
[2024-11-06] MEDS ORDERED: SUCCINYLCHOLINE CHLORIDE 200 MG/10 ML VIAL IV ONE (09:40)
[2024-11-06] MEDS ORDERED: ROCURONIUM 10 MG/ML (5 ML VIAL) IV ONE (09:40)
[2024-11-06] MEDS: BUPIVACAINE (PF) 0.25% 30 ML VIAL SQ ONE (10:04)
[2024-11-06] MEDS: LACTATED RINGERS 1,000 ML IV ONE (10:10)
--- NOTE | 2024-11-06 10:39 | P.OP ---
Date of Procedure: 11/06/24 Preoperative Diagnosis: Right knee adhesions with history of total knee arthroplasty Postoperative Diagnosis: Right knee adhesions with history of total knee arthroplasty Procedure(s) Performed: 1. Arthroscopic lysis of adhesions right knee 2. Arthroscopic partial synovectomy medial, lateral and suprapatellar compartments right knee Anesthesia: NELI, local Surgeon: Mainor Pollard Estimated Blood Loss (ml): 5 Pathology: none sent Condition: stable Disposition: PACU Indications for Procedure: 74-year-old patient seen with right knee stiffness with history of previous total knee arthroplasty and persistent/recurrent adhesions.. She had failed conservative treatment to include physical therapy and manipulation under anesthesia. After having options discussed she elected to proceed with arthroscopy. Operative Findings: See description of procedure Description of Procedure: Patient was taken to the operative suite. Patient underwent a general anesthetic by the department of anesthesia. Patient was given preoperative antibiotics. The right lower extremity was placed in a well-padded arthroscopic leg nova. The right leg was prepped and draped in the normal sterile orthopedic fashion. A lateral parapatellar and suprapatellar incision was made. Trochars were inserted. Arthroscopy was initiated. Suprapatellar pouch revealed diffuse synovitis along with some adhesions. The patellofemoral joint appeared to articulate congruently. The patellar polyethylene component appeared stable. The scope was guided into the medial compartment area an incision was made trocar was inserted followed by a motorized shaver. I performed a partial synovectomy. I now introduced a ArthroCare ablator and performed lysis of adhesions. I reintroduced my motorized shaver and debrided some of that tissue as well. I now guided the scope into the intercondylar notch and I did not identify any significant scar tissue there. I guided the scope into the lateral compartment. I introduced a motorized shaver performed a partial synovectomy. I introduced my ablator and performed a lysis of adhesions and then reintroduced my motorized shaver and debrided out some of that residual scar tissue. The tibial tray was probed and was found to be stable as was the polyethylene component. The femoral component appeared stable as well. The scope was guided back into the suprapatellar compartment. I introduced a mo torized shaver and performed a partial synovectomy. I now introduced my ablator and performed a lysis of adhesions. I reintroduced my shaver and debrided out some of that residual scar tissue. I now took more look around the entire knee and noted good release of all the adhesions and good synovectomy. I took the knee through full range of motion noted full extension at about 135 degrees of flexion. Intraoperatively the knee appeared stable in regards to ligamentous stability and overall stability as well. At this point instruments were removed from the knee. The portal sites were approximated with nylon suture. I injected 30 cc of quarter percent plain Marcaine intra-articular for postoperative analgesia. Sterile dressings were applied. The patient was placed into a KRISTEN hose. No tourniquet was utilized. The patient was awakened, transferred to a bed and taken to recovery stable satisfactory condition.
[2024-11-06 10:43] VITALS: TEMP 97
[2024-11-06] MEDS: fentaNYL (PF) 50 MCG/ML 2 ML AMP IV PRN (11:12)
[2024-11-06 11:34] VITALS: RESP 16
[2024-11-06 13:03] VITALS: BP 145/87; PULSE 59
== END 2024-11-06 13:04 | disposition home or self-care (01) ==
LOC: OR 07:50
PROVIDERS: ATTEND Orthopaedic Surgery
DX: M24.661 Ankylosis, right knee (principal); E78.5 Hyperlipidemia, unspecified; I10 Essential (primary) hypertension; Z88.1 Allergy status to other antibiotic agents; Z88.5 Allergy status to narcotic agent; Z88.6 Allergy status to analgesic agent; Z96.659 Presence of unspecified artificial knee joint
CPT/HCPCS: 29875; J2250; J0330; J1100; J2710; J0690; J2405; J2003; J3010; J2704; J2371; J0665; J1596